=== PATIENT | male | born 1995 | race Two or more races ===

== ENCOUNTER 2024-09-24 20:21 | Emergency (ER) | payer MEDICAID, SELFPAY ==
[2024-09-24 20:22] VITALS: BMI 19.3
[2024-09-24 20:29] VITALS: BP 125/64; PULSE 98; RESP 18; TEMP 36.9; O2SAT 99
--- NOTE | 2024-09-24 20:38 | XR_ITS ---
Examination: CT brain head without contrast. 2-D sagittal coronal reconstructions Date and time of exam:September 24, 20242050 hrs. Indications: Patient fell from a roof today with injury to the head, head pain CTDI: vol (mGy):49.7 DLP: (mGycm):1033 Technique: Multiple CT axial sections of the brain have been obtained, 5 mm slice thickness. Contrast has not been administered. 2-D sagittal, coronal reconstructions have been obtained Low dose protocols were performed. One or more of the following dose reduction techniques were used; automated exposure control, adjustment of the mA and/or KV according to patient size, use of iterative reconstruction technique. Findings: No significant ventricular enlargement. Intra-axial or extra-axial hemorrhage density is not seen. No mass effect or midline shift Basal cisterns are not remarkable. Fourth ventricle is midline. Cranial vault intact. Impression: Negative for acute hemorrhage, mass effect or midline shift
--- NOTE | 2024-09-24 20:38 | XR_ITS ---
Examination: Hand, left 3 views Technique: Hand AP, oblique, lateral 3 views Date and time of exam: September 24, 20242050 hrs. Indications: Patient fell off a roof today with injury to the hand, hand pain. Findings: Soft tissue technique with small soft tissue defect at the level of the distal fifth metacarpal No opaque foreign body No gross fracture Impression: No opaque foreign body
--- NOTE | 2024-09-24 20:38 | XR_ITS ---
Examination: CT cervical spine without contrast 2-D sagittal reconstructions 2-D coronal reconstructions 3-D reconstructions. Exam date and time:September 24, 20243 hrs. Indications: Patient fell off a roof today with into the neck, neck pain CTDI:vol (mGy) 12.3 DLP: (mGycm) 325 Technique: Multiple 2 mm axial sections of the cervical spine have been obtained. The coronal and sagittal reconstructions have been obtained. 3-D reconstructions have been obtained. Low dose protocols were performed. One or more of the following dose reduction techniques were used; automated exposure control, adjustment of the mA and/or KV according to patient size, use of iterative reconstruction technique. Findings: Axial sections demonstrate intact base of the skull. C1 exhibit satisfactory relationship to the odontoid. No acute cervical vertebral body fracture seen. Alignment posterior spinous processes satisfactory. Impression: No acute cervical fracture.
--- NOTE | 2024-09-24 20:38 | XR_ITS ---
Examination: Wrist, left 3 views Technique: Wrist AP, oblique, lateral 3 views Date and time of exam: September 24, 20242050 hrs. Indications: Patient fell off a roof today with injury to the wrist, wrist pain Findings: Tiny 1 mm bone density adjacent to the base of the fifth metacarpal This appears old but clinical correlation advised No opaque foreign body Soft tissue defect adjacent to the distal fifth metacarpal Impression: Tiny old appearing bone density at the base of first metacarpal but clinical correlation advised
--- NOTE | 2024-09-24 20:39 | PD.EDRME ---
Rapid Medical Screening Exam FORMERLY [facility], [facility] Arrival date/time: 09/24/24 20:21 29M with no significant PMH presents to ED with L hand/wrist pain/lac after he fell off his roof putting up [employer] lights. Patient also has mild head pain but he used his hand to brace his head. Finally, patient has a scrape on his L ab area. Patient has not had a tetanus shot in the past 5 years. Chief Complaint: Fall Vital signs: Vital Signs Temperature 98.5 F 09/24/24 20:29 Pulse Rate 98 09/24/24 20:29 Respiratory Rate 18 09/24/24 20:29 Blood Pressure 125/64 09/24/24 20:29 Pulse Oximetry (%) 99 09/24/24 20:29 Oxygen Delivery Method Room Air 09/24/24 20:29
[2024-09-24] MEDS: DIPHTH,PERTUSS(ACELL),TET VAC 0.5 ML VIAL IMi (21:09)
--- NOTE | 2024-09-24 21:23 | EDNOTE_ITS ---
ED General RME/HPI General Chief complaint: Fall Stated complaint: FELL FROM A ROOF Time Seen by Provider: 09/24/24 20:49 Arrival date/time: 09/24/24 20:21 CC: Left hand pain HPI patient fell from a single-story roof while putting up [employer] lights, patient states he stepped off the roof not realizing that the re was no place left a step. Patient states he landed on his hand denies LOC or ALOC is awake alert oriented no known last tetanus shot has no focal neurodeficits complaining of left hand pain. RME / HPI RME / HPI narrative: 09/24/24 20:21 29M with no significant PMH presents to ED with L hand/wrist pain/lac after he fell off his roof putting up [employer] lights. Patient also has mild head pain but he used his hand to brace his head. Finally, patient has a scrape on his L ab area. Patient has not had a tetanus shot in the past 5 years. Related Data Previous Rx's ?Medication ?Instructions ?Recorded loperamide 2 mg capsule (Imodium 2 mg PO Q6H PRN loose stool #14 10/14/23 A-D) caps ondansetron 4 mg disintegrating 4 mg PO Q8H PRN nausea and 10/14/23 tablet vomiting #10 tabs cephalexin 500 mg capsule 500 mg PO BID #14 caps 09/24/24 Allergies Allergy/AdvReac Type Severity Reaction Status Date / Time No Known Allergies Allergy Verified 10/14/23 14:47 Review of Systems Review of Systems Narrative Review of Systems: GEN: No fever, no chills, no weight loss EYES: No discharge, no visual changes, no pain HEENT: No ear pain, no congestion, no sore throat PULM: No shortness of breath, no cough, no congestion CV: No chest pain, no dyspnea on exertion, no palpitations GI: No nausea, no vomiting, no diarrhea, no pain, no constipation : No frequency, no urgency, no dysuria MUSC/SKEL: No joint pain, no back pain SKIN: + Laceration, no rash PSYCH: No hallucinations, no depression HEME/LYMPH: No easy bleeding or bruising tendencies NEURO: No weakness, no headache Past Medical History Past Medical History CARDIAC: Negative Congestive Heart Failure RESPIRATORY: Negative Chronic Obstructive Pulmonary Disease (COPD) GENITOURINARY: Negative Renal Disease ENDOCRINE: Negative Diabetes Mellitus Type 1 or Diabetes Mellitus Type 2 Social History SMOKING STATUS: Current every day smoker ED Exam Narrative Physical exam: [General: In mild discomfort but not in any acute distress Head normocephalic no step-off hematoma induration ulceration abrasion laceration or depression HEENT: Eyes: Pupils are PERRLA EOMs are intact no entrapment, no otorrhea or rhinorrhea raccoon's eyes Bailey sign facial asymmetry epistaxis, mouth pink moist membranes uvula is midline swallow symmetrical phonation is normal. Neck is supple nontender no edema no masses nontender palpation of the cervical spinous process Chest equal chest rise nontender to palpation Respiratory: Clear to auscultation no wheezes crackles or rubs CV: Rate rhythm is regular no murmurs rubs or clicks Abdomen is flat, soft nontender no masses positive bowel sounds all 4 quadrants Back: No CVA tenderness no spinous process tenderness from cervical spine thoracic and lumbar spine Skin: 12 cm full-thickness laceration extending from the base of the fifth digit left hand down along the blade of the hand and 1 cm into the dorsum of the hand. Otherwise skin is intact no petechiae rash induration ulceration or crepitus Extremities: Full range of motion of the left hand including the fifth digit is passive active, and against resistance full flexion extension. Moving all other extremities against resistance cap refill less than 2 seconds neurosensory intact Neuro: Awake alert oriented x3 Glascow coma 15 no focal deficits] Course Quality Measures none Orders Category Date Time Status Set Up Suture Tray STAT Care 09/24/24 20:38 Active Set Up Suture Tray STAT Care 09/24/24 21:10 Active Wound Care NOW Care 09/24/24 20:[address] cervical spine wo con Stat Exams 09/24/24 20:[address] head/brain wo con Stat Exams 09/24/24 20:38 Completed XR hand comp LT min 3V Stat Exams 09/24/24 20:38 Completed XR wrist comp LT min 3V Stat Exams 09/24/24 20:38 Completed Lidocaine 1% 20 ml [Xylocaine 1% 20 ML] Med 09/24/24 21:10 Discontinued 20 ml INFL X1 ONE Tet,Diphth,Pertuss(Acell)-Tdap [Boostrix Vacc] Med 09/24/24 20:38 Discontinued 0.5 ml IMI .ONCE ONE Vital Signs Vital signs: Vital Signs Temperature 98.5 F 09/24/24 20:29 Pulse Rate 98 09/24/24 20:29 Respiratory Rate 18 09/24/24 20:29 Blood Pressure 125/64 09/24/24 20:29 Pulse Oximetry (%) 99 09/24/24 20:29 Oxygen Delivery Method Room Air 09/24/24 20:29 Procedures -ED Procedure Comment Laceration repair left hand verbal consent obtained. Anesthesia: 1% lidocaine without epinephrine, 14 mL injected into the local site, site was extensively wa shed and probed, no foreign body was found site was approximated with 7 sutures of 3-0 Ethilon with good approximation without complication patient tolerated the procedure well cap refill in the fifth digits less than 2 seconds neurosensory intact bulky dressing is applied. The site continues to ooze a small amount of blood. [facility] Patient data External records reviewed:: [facility] previous records Clinical information provided by:: patient Social determinants that could affect healthcare access:: none Patient has the following chronic illnesses:: None How is presenting disease/condition affected by chronic disease/condition?: uneffected by Evaluation data The following diagnostics were reviewed and interpreted by me:: lab results and radiology exam(s) Lab and/or radiology exams considered but not ordered:: CT head and C-spine as interpreted by me read radiology as negative for any acute finding quires emergent immediate intervention Hand and wrist x-rays interpreted me shows no acute fracture malalignment or dislocation. Interpretation Summary: Hand laceration no other acute finding secondary to the fall Medications Medications considered but not ordered:: None Medication administrations:: Medication Administration History Discontinued Medications Diphtheria/Tetanus/Acell Pertussis (Diphth,Pertuss(Acell),Tet Vac 0.5 Ml Vial) 0.5 ml IMi .ONCE ONE Stop: 09/24/24 20:39 Last Admin: 09/24/24 21:09 Dose: 0.5 ml Documented By: CB Lidocaine HCl (Lidocaine Hcl 1% 20 Ml Vial) 20 ml INFL X1 ONE Stop: 09/24/24 21:11 None Consultations Consultation(s) initiated? (list below): No Diagnosis Differential Diagnosis ED Complaint MDM: Closed injury neck fracture hand fracture hand laceration Most likely diagnosis given after review of the tests above:: And laceration Admission Indicated Admission indicated?: not indicated Explain why admission is indicated or not indicated:: Stable for outpatient follow-up Admission Request Was there a request for admission?: No Disposition Plan Disposition Plan: Discharge Discharge Attestation Discharge Attestation: The patient and all family members were given an opportunity to ask questions and understood the discharge instructions. Discharge instructions specifically effects, indications for sooner follow up or return to the emergency department, and the expected course of current diagnosis. Patient condition: Stable Medical Decision Making Differential Diagnosis Differential Diagnosis: Closed injury neck fracture hand fracture hand laceration Discharge Plan Plan Patient Disposition: HOME (Self Care) Patient condition on transfer: Stable Prescriptions/Referrals Prescriptions/Med Rec: New cephalexin 500 mg capsule 500 mg PO BID Qty: 14 0RF No Action loperamide [Imodium A-D] 2 mg capsule 2 mg PO Q6H PRN (Reason: loose stool) Qty: 14 0RF ondansetron 4 mg tablet,disintegrating 4 mg PO Q8H PRN (Reason: nausea and vomiting) Qty: 10 0RF Referrals: Sang Charles MD [Physician] - In 1 week Problem List Clinical Impression: Fall, Hand laceration Patient/Caregiver Discharge Instructions Other Activity Instructions:: Keep the hand laceration clean and dry, change the dressing every day, if you take a shower cover with plastic for the first week. Sutures sutures come out in 2 weeks, take the medications as prescribed. There are any signs of infection such as redness pus or swelling return immediately to the emergency room for reevaluation. Education Materials: ED Laceration: All Closures Print Language: Chinese Stand Alone Forms: Joana Award Info., Patient Portal Info Letter, Work/School Release SAV/GAL Supervising Physician MYKEL Supervising Physician: Roque Camarena ENP
[2024-09-24 21:54] VITALS: BP 148/87; PULSE 87; RESP 19; O2SAT 100
== END 2024-09-24 21:54 | disposition home or self-care (01) ==
LOC: SERX 22:05
PROVIDERS: Emergency Provider Emergency Medicine
DX: S61.412A Laceration without foreign body of left hand, initial encounter (principal); S09.90XA Unspecified injury of head, initial encounter; S69.92XA Unspecified injury of left wrist, hand and finger(s), initial encounter; M54.2 Cervicalgia; W13.2XXA Fall from, out of or through roof, initial encounter; Y93.89 Activity, other specified; Y92.89 Other specified places as the place of occurrence of the external cause; Z23 Encounter for immunization
CPT/HCPCS: 12004; 70450; 72125; 73110; 73130; 90471; 90715; 99284